=== PATIENT | female | born 1995 | race Caucasian/White ===

== ENCOUNTER 2018-02-08 12:22 | Emergency (ER) | payer OTHER ==
[~2018-02-08] VITALS: Ht 157.5 cm; Wt 61.4 kg
[2018-02-08] MEDS ORDERED: ETON68IM3 SD (12:29)
[2018-02-08] MEDS ORDERED: MORPHINE SULFATE 2 MG/ML SYRINGE IVP ONE (13:15)
[2018-02-08] MEDS ORDERED: ONDANSETRON HCL 4 MG/2 ML VIAL IVP ONE (13:15)
[2018-02-08] MEDS ORDERED: SODIUM CHLORIDE 0.9% 1,000 ML IV ONE (13:15)
[2018-02-08] MEDS ORDERED: KETOROLAC TROMETHAMINE 30 MG/ML VIAL IVP ONE (15:00)
[2018-02-08] MEDS ORDERED: METOCLOPRAMIDE HCL 5 MG/ML 2 ML VIAL IVP ONE (15:00)
[2018-02-08 15:45] VITALS: BP 138/72
[2018-02-08] MEDS ORDERED: DiphenhydrAMINE HCL 50 MG/ML VIAL IVP ONE (16:00)
== END 2018-02-08 16:57 | disposition home or self-care (01) ==
LOC: EMS 12:23
DX: R51 Headache (principal); M26.621 Arthralgia of right temporomandibular joint; Z79.899 Other long term (current) drug therapy
CPT/HCPCS: 70450; 81002; 81025; 96374; 96375; 99284; J1885; J2270; J2405; J2765; J7030; J1200

== ENCOUNTER 2021-08-14 16:50 | Emergency (ER) | payer OTHER ==
[~2021-08-14] VITALS: Ht 157.5 cm; Wt 68.0 kg
[~2021-08-14 16:50] MED LIST: ETON68IM3 SD
[2021-08-14] MEDS ORDERED: LORazepam 1 MG TABLET PO ONE (19:00)
[2021-08-14 19:41] VITALS: BP 133/92
== END 2021-08-14 20:10 | disposition home or self-care (01) ==
LOC: EMS 16:50
DX: F41.9 Anxiety disorder, unspecified (principal); Z91.018 Allergy to other foods; Z79.899 Other long term (current) drug therapy
CPT/HCPCS: 99283

== ENCOUNTER 2023-04-02 15:21 | Emergency (ER) | payer OTHER ==
[~2023-04-02] VITALS: Ht 157.5 cm; Wt 65.9 kg
[~2023-04-02 15:21] MED LIST changes: -ETON68IM3 SD; +ETON68IM4 SD
[2023-04-02 15:23] VITALS: TEMP 98.5
[2023-04-02] MEDS ORDERED: antianxiety PO (15:36)
[2023-04-02] MEDS ORDERED: LORazepam 2 MG/ML VIAL IM ONE (16:15)
[2023-04-02] MEDS ORDERED: NORG1TAB75 PO (16:17)
[2023-04-02 16:32] LABS: BASOPHILS % (AUTO) 0.7 % (0.0-2.0); EOSINOPHILS % (AUTO) 0.3 % (1.0-6.0); HEMATOCRIT 36.6 % (36-46); HEMOGLOBIN 12.3 g/dL (12.0-16.0); LYMPHOCYTES % (AUTO) 16.7 % (22.0-44.0); MEAN CORPUSCULAR HEMOGLOBIN 36.5 pg (26.0-34.0); MEAN CORPUSCULAR HGB CONC 33.7 G/dL (31.0-37.0); MEAN CORPUSCULAR VOLUME 108 fL (80-100); MONOCYTES # (AUTO) 0.4 K/uL (0.1-1.0); MONOCYTES % (AUTO) 3.7 % (2.0-9.0); NEUTROPHILS # (AUTO) 9.3 K/uL (1.8-7.7); NEUTROPHILS % (AUTO) 78.6 % (40.0-70.0); PLATELET COUNT (AUTO) 324 K/uL (150-450); RED BLOOD CELL COUNT(AUTO) 3.38 MIL/uL (4.00-5.20); RED CELL DISTRIBUTION WIDTH 15.8 % (11.5-14.5)
[2023-04-02 16:42] LABS: ANION GAP 15 mmol/L (8-16); CALCIUM, TOTAL 7.6 mg/dL (8.8-10.5); CARBON DIOXIDE 23 mmol/L (22-29); CHLORIDE 97 mmol/L (98-107); CREATININE 0.91 mg/dL (0.60-1.30); GLOMERULAR FILTR. RATE CALC > 60 mL/min (>60); GLUCOSE,RANDOM 115 mg/dL (70-110); SODIUM SERUM 135 mmol/L (136-145)
[2023-04-02 16:45] LABS: POTASSIUM 2.1 mmol/L (3.5-5.1)
[2023-04-02] MEDS ORDERED: POTASSIUM CHLORIDE 10% 40 MEQ/30 ML LIQUID UDCUP PO ONE ×3 (17:00→18:15)
[2023-04-02 18:00] VITALS: BP 155/97; PULSE 98; RESP 22
[2023-04-02] MEDS ORDERED: POTA-92 PO (19:10)
== END 2023-04-02 19:27 | disposition home or self-care (01) ==
LOC: EMS 15:30
DX: E87.6 Hypokalemia (principal); Z91.018 Allergy to other foods
CPT/HCPCS: 99284; 80048; 84703; 85025; 36415; 96372; J2060